=== PATIENT | male | born 1965 | race Caucasian/White ===

== ENCOUNTER 2016-10-29 06:21 | Emergency (ER) | payer MEDICAID, OTHER ==
[2016-10-29 06:29] VITALS: BP 140/87
[2016-10-29] MEDS ORDERED: Cephalexin 500 MG Cap PO ONE (06:50)
--- NOTE | 2016-10-29 06:56 | EDM.PDOC ---
ED HPI GENERAL MEDICAL PROBLEM - General Chief Complaint: Skin Complaint Stated Complaint: LEFT LEG INFECTION Time Seen by Provider: 10/29/16 06:41 Source of Information: Reports: Patient, RN Notes Reviewed History Limitations: Reports: No Limitations - History of Present Illness INITIAL COMMENTS - FREE TEXT/NARRATIVE: The patient states that a lesion developed on the lateral aspect of his left leg about one week ago. He thought perhaps he had been bitten by an insect. It formed a small pustule which he poked with a needle 2 days ago. Since then, he has developed significant erythema surrounding it. It has not been draining. No recent fever. The patient states that he has been applying warm compresses to it when showering. The patient is diabetic, but does not regularly check his blood glucose. The patient's PCP is Dr. Franz, from [place], [place]. Left Lower Leg Pain Score (Numeric/FACES): 6 - Related Data Allergies Allergy/AdvReac Type Severity Reaction Status Date / Time No Known Allergies Allergy Verified 10/29/16 06:28 Home Meds: Home Meds Cephalexin [Keflex] 500 mg PO Q6HR #28 cap 10/29/16 [Rx] Lisinopril 10 mg PO BID 10/29/16 [History] metFORMIN HCl [Metformin HCl] 1,000 mg PO BID 10/29/16 [History] Past Medical History Cardiovascular History: Reports: Hypertension Endocrine/Metabolic History: Reports: Diabetes, Type II - Past Surgical History HEENT Surgical History: Reports: Tonsillectomy Male Surgical History: Reports: Vasectomy, Other (See Below) (Reversal of vasectomy) Musculoskeletal Surgical History: Reports: Arthroscopic Knee (right) Social & Family History - Tobacco Use Smoking Status *Q: Never Smoker - Alcohol Use Alcohol Use History: No - Recreational Drug Use Recreational Drug Use: No - Living Situation & Occupation Living situation: Reports: , Alone Occupation: Employed (Project Developer, 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[employer]) ED ROS GENERAL - Review of Systems Review Of Systems: See Below Constitutional: Reports: No Symptoms HEENT: Reports: No Symptoms Respiratory: Reports: No Symptoms Cardiovascular: Reports: No Symptoms Endocrine: Reports: No Symptoms GI/Abdominal: Reports: No Symptoms : Reports: No Symptoms Musculoskeletal: Reports: No Symptoms Skin: Reports: No Symptoms Neurological: Reports: No Symptoms Psychiatric: Reports: No Symptoms Hematologic/Lymphatic: Reports: No Symptoms Immunologic: Reports: No Symptoms ED EXAM, SKIN/RASH Exam: See Below Exam Limited By: No Limitations General Appearance: Alert, WD/WN, No Apparent Distress Extremities: Other (There is a small ulceration to the lateral proximal aspect of the patient's left leg with surrounding erythema measuring approximately 8 cm x 10 cm. The entire area is indurated, without fluctuance. Neurovascular status of the left lower extremity is intact.) Course - Vital Signs Last Recorded V/S: Last Vital Signs Temp 36.2 C 10/29/16 06:26 Pulse 86 10/29/16 06:26 Resp 16 10/29/16 06:26 BP 140/87 10/29/16 06:26 Pulse Ox 96 10/29/16 06:26 - Orders/Labs/Meds Orders: Active Orders 24 hr Category Date Time Status Accu Check [Blood Glucose Check, Bedside] [RC] ONETIME Care 10/29/16 06:50 Ordered Cephalexin [Keflex] Med 10/29/16 06:50 Once 500 mg PO ONETIME ONE Medication Orders Cephalexin (Keflex) 500 mg PO ONETIME ONE Stop: 10/29/16 06:51 Meds: Medications Generic Name Dose Route Start Last Admin Trade Name Freq PRN Reason Stop Dose Admin Cephalexin 500 mg 10/29/16 06:50 Keflex PO 10/29/16 06:51 ONETIME ONE - Re-Assessments/Exams Free Text/Narrative Re-Assessment/Exam: 10/29/16 06:51 The patient has cellulitis to the lateral aspect of his proximal left leg. I will start him on oral Keflex, and requests that he apply warm compresses to the area several times a day. At present, there is induration without fluctuance , therefore there is nothing to I & D. The patient's Accu-Chek is elevated at 325, however, the patient states that he has not yet taken his metformin. Departure - Departure Time of Disposition: 06:58 Disposition: Home, Self-Care 01 Condition: Fair Clinical Impression: Cellulitis of left leg, Hyperglycemia due to type 2 diabetes mellitus - Discharge Information Forms: ED Department Discharge Additional Instructions: You were seen in the emergency room for an infection to your left leg. On examination, you have cellulitis. Additionally, your blood sugar is significantly elevated at 325. You have been started on the antibiotic Keflex. Take one tablet every 6 hours, as prescribed. Finish the entire prescription unless told otherwise by a doctor. Apply a warm compress to the area for 15 minutes, 4-5 times a day. Keep the wound clean with ordinary soap and water. DO NOT poke it with a pin. Follow-up with your primary care physician once you return home to [place]. If any other problems, please do not hesitate to return to the ER. - My Orders Last 24 Hours: My Active Orders 10/29/16 06:50 Accu Check [Blood Glucose Check, Bedside] [RC] ONETIME Cephalexin [Keflex] 500 mg PO ONETIME ONE - Assessment/Plan Last 24 Hours: My Active Orders 10/29/16 06:50 Accu Check [Blood Glucose Check, Bedside] [RC] ONETIME Cephalexin [Keflex] 500 mg PO ONETIME ONE
== END 2016-10-29 07:04 | disposition home or self-care (01) ==
LOC: JD.ED 06:21
DX: L03.116 Cellulitis of left lower limb (principal); E11.65 Type 2 diabetes mellitus with hyperglycemia; Z79.84 Long term (current) use of oral hypoglycemic drugs; I10 Essential (primary) hypertension
CPT/HCPCS: 82962; 99283; A9270